=== PATIENT | female | born 1995 | race Caucasian/White ===

== ENCOUNTER 2018-07-26 15:51 | Outpatient (CLI) | payer OTHER ==
[2018-07-26 16:58] LABS: APPEARANCE,URINE SLIGHTLY-CLOUDY; BILIRUBIN,URINE NEGATIVE (NEGATIVE); COLOR,URINE YELLOW; GLUCOSE, URINE NEGATIVE (NEGATIVE); KETONES,URINE NEGATIVE (NEGATIVE); LEUKOCYTE ESTERASE,URINE MODERATE (NEGATIVE); NITRITE,URINE NEGATIVE (NEGATIVE); PROTEIN,URINE NEGATIVE (NEGATIVE); URINE SPECIFIC GRAVITY 1.016
[2018-07-26 17:16] LABS: URINE AMPHETAMINES SCREEN NEGATIVE; URINE BARBITURATES SCREEN NEGATIVE; URINE BENZODIAZEPINES SCREEN NEGATIVE; URINE COCAINE SCREEN NEGATIVE; URINE MARIJUANA (THC) SCREEN NEGATIVE; URINE METHADONE SCREEN NEGATIVE; URINE PHENCYCLIDINE SCREEN NEGATIVE
--- NOTE | 2018-07-26 18:50 | Non Stress Test Report ---
Non Stress Test Datetime Report Generated by CPN: 07/26/2018 18:50 DEMOGRAPHIC EGA NST: 37.2 INDICATION Indication for Study: Ordered by Provider Indication for Study (NST) Other: lc MONITORING Monitor Explained: Monitor Explained; Test Explained; Patient Verbalized Understanding Time on Monitor: 07/26/2018 16:45 Time off Monitor: 07/26/2018 17:29 NST Duration: 44 NST INTERVENTIONS NST Interventions: PO Hydration; Reposition Patient Physician Notified NST: C Jackson CNM BABY A: [id number] BABY A Movement : Present Contraction Frequency : irr FHR Baseline : 140 Accelerations : 15X15 Decelerations : None Variability : Moderate 6-25bpm NST Review: Meets Criteria for Reactive NST NST Review and Verified By : Vicki PFEIFFER RN NST Results: Reactive NST REPORT Report Trigger: Send Report
== END 2018-07-26 17:48 | disposition home or self-care (01) ==
LOC: LC 15:51
PROVIDERS: ATTEND Obstetrics & Gynecology
PROC: 4A1HXCZ Monitoring of Products of Conception, Cardiac Rate, External Approach (ICD-10-PCS; principal; 2018-07-26)
DX: O47.1 False labor at or after 37 completed weeks of gestation (principal); Z3A.37 37 weeks gestation of pregnancy
CPT/HCPCS: 59025; 80307; 81005

== ENCOUNTER 2018-07-29 23:13 | Outpatient (CLI) | payer OTHER ==
[2018-07-29 23:41] LABS: APPEARANCE,URINE CLOUDY; BILIRUBIN,URINE NEGATIVE (NEGATIVE); COLOR,URINE YELLOW; GLUCOSE, URINE NEGATIVE (NEGATIVE); KETONES,URINE NEGATIVE (NEGATIVE); LEUKOCYTE ESTERASE,URINE LARGE (NEGATIVE); NITRITE,URINE NEGATIVE (NEGATIVE); PROTEIN,URINE NEGATIVE (NEGATIVE); URINE SPECIFIC GRAVITY 1.014
[2018-07-30 00:13] LABS: URINE AMPHETAMINES SCREEN NEGATIVE; URINE BARBITURATES SCREEN NEGATIVE; URINE BENZODIAZEPINES SCREEN NEGATIVE; URINE COCAINE SCREEN NEGATIVE; URINE MARIJUANA (THC) SCREEN NEGATIVE; URINE METHADONE SCREEN NEGATIVE; URINE PHENCYCLIDINE SCREEN NEGATIVE
== END 2018-07-30 01:07 | disposition home or self-care (01) ==
LOC: LC 23:13
PROVIDERS: ATTEND Obstetrics & Gynecology
DX: O47.1 False labor at or after 37 completed weeks of gestation (principal); Z3A.37 37 weeks gestation of pregnancy
CPT/HCPCS: 80307; 81005

== ENCOUNTER 2018-08-16 11:42 | Inpatient (IN) | payer OTHER ==
[2018-08-16] MEDS: RINGERS SOLUTION,LACTATED 1,000 ML IV PRN ×3 (12:06→19:07)
[2018-08-16] MEDS ORDERED: OXYTOCIN/NORMAL SALINE 20 UNIT/1,000 ML RTUINJ IV PRN ×2 (12:15→22:24)
[2018-08-16] MEDS ORDERED: RINGERS SOLUTION,LACTATED 300 ML IV ONE (12:15)
[2018-08-16] MEDS ORDERED: MISOPROSTOL 0.2 MG TABLET ONE (12:18)
[2018-08-16] MEDS ORDERED: OXYTOCIN 10 UNIT/ML VIAL ONE (12:18)
[2018-08-16] MEDS ORDERED: OXYTOCIN/NORMAL SALINE 20 UNIT/1,000 ML RTUINJ ONE (12:19)
[2018-08-16] MEDS ORDERED: LIDOCAINE 1% INJ-PF (10 MG/ML) 30 ML SDV ONE (12:19)
[2018-08-16 12:37] LABS: HEMOGLOBIN 11.9 g/dL (12.0-15.5); MEAN CORPUSCULAR HEMOGLOBIN 31.4 pg (27.0-33.4); MEAN CORPUSCULAR HGB CONC 35.2 g/dL (32.0-36.0); MEAN CORPUSCULAR VOLUME 89 fl (80-97); PLATELET COUNT 145 10^3/uL (150-450); RED CELL DISTRIBUTION WIDTH 15.1 % (11.5-14.0); WHITE BLOOD COUNT 8.4 10^3/uL (4.0-10.5)
[2018-08-16 13:04] LABS: ABSOLUTE LYMPHOCYTES# (MANUAL) 1.9 10^3/uL (0.5-4.7); ABSOLUTE MONOCYTES # (MANUAL) 0.3 10^3/uL (0.1-1.4); BAND NEUTROPHILS % (MANUAL) 2 % (3-5); BASOPHILS % (MANUAL) 0 % (0-2); EOSINOPHILS % (MANUAL) 1 % (0-6); LYMPHOCYTES % (MANUAL) 18 % (13-45); MONOCYTES % (MANUAL) 4 % (3-13); SEGMENTED NEUTROPHILS % (MAN) 70 % (42-78); TOTAL CELLS COUNTED 100
[2018-08-16 13:05] LABS: PLATELET COMMENT DECREASED; RBC MORPHOLOGY COMMENT NORMO-CYTIC/CHROMIC; TOXIC GRANULATION 1+
[2018-08-16 13:50] LABS: APPEARANCE,URINE CLOUDY; BILIRUBIN,URINE NEGATIVE (NEGATIVE); COLOR,URINE YELLOW; GLUCOSE, URINE NEGATIVE (NEGATIVE); KETONES,URINE NEGATIVE (NEGATIVE); LEUKOCYTE ESTERASE,URINE LARGE (NEGATIVE); NITRITE,URINE NEGATIVE (NEGATIVE); PROTEIN,URINE NEGATIVE (NEGATIVE); URINE SPECIFIC GRAVITY 1.011; UROBILINOGEN,URINE NEGATIVE mg/dL (<2.0)
--- NOTE | 2018-08-16 13:55 | Admission Physical ---
Datetime Report Generated by CPN: 08/16/2018 13:55 CURRENT ADMISSION Hx Assessment: The History has been Reviewed and is Current Chief Complaint: Scheduled Induction of Labor Indication for Induction: Post Dates Admit Impression : Postterm, Intrauterine ; No Active Labor; Intact Membranes; Induction of Labor Admit Plan: Admit to Unit; Initiate Labor Induction Protocol ALLERGIES Medication Allergies: No Medication Allergies: No Known Allergies (07/30/2018) Latex: No Latex Allergies Food Allergies: pineapple OBSTETRICAL HISTORY EDC: 08/14/2018 00:00 : 2 Para: 1 Term: 1 : 0 SAB: 0 IAB: 0 Ectopic: 0 Livin Cesareans: 0 VBACs: 0 Multiple Births: 0 Gestational Diabetes: No Rh Sensitization: No Incompetent Cervix: No [place]: No Infertility: No ART Treatment: No Uterine Anomaly: No IUGR: No Hx Previous C/S: No Macrosomia: No Hx Loss/Stillborn: No PIH: No Hx : No Placenta Previa/Abruption: No Depression/PP Depression: No PTL/PROM: No Post Hemorrhage: No Current Procedures: Ultrasound Obstetrical History Comments: 2017 9lbs 6 oz female G2 - current SEE RECORDS Alcohol: No Marijuana : No Cocaine: No Other Illicit Drugs: No Cigarettes: Never Smoker. 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 Heart Disease: No Hosp/Surgery: Yes Autoimmune Disorder: No Anesthetic Complications: No Kidney Disease: No Abnormal Pap Smear: No Neuro/Epilepsy: No Psychiatric Disorders: No Other Medical Diseases: No Hepatitis/Liver Disease: No Significant Family History: No Varicosities/Phlebitis: No Trauma/Violence : No Thyroid Dysfunction: No Medical History Comments: Asthma, Left tibia sx x2, INFECTIOUS HISTORY Gonorrhea: No Genital Herpes: No Chlamydia: No Tuberculosis: No Syphilis: No Hepatitis: No HIV/AIDS Exposure: No Rash or Viral Illness: No HPV: No PHYSICAL EXAM General: Normal HEENT: Normal Neurologic: Normal Thyroid: Deferred Heart: Normal Lungs: Normal Breast: Deferred Back: Deferred Abdomen: Normal Genitourinary Exam: Normal Extremities: Normal DTRs: Normal Pelvic Type: Adequate Physical Exam Comments: Pelvis proven 9-6 Asthma GBS neg MEMBRANES Membranes: Intact FETUS A EGA: 40.2 Monitoring: External US Variability: Moderate 6-25bpm Accelerations: 15X15 Decelerations: None FHR Category: Category I Admit Comment: Admitted for IOL, 40,2 Pitocin per protocol VS stable POC discussed PLANS FOR LABOR AND DELIVERY Labor and Delivery: None Pain Management: Epidural Feeding Preference: Breast Circumcision: Yes INFORMED CONSENT Assignment: Carson Rosales MD Signature: with User ID: Chip : with User ID: Chip
[2018-08-16 14:06] LABS: URINE AMPHETAMINES SCREEN NEGATIVE; URINE BARBITURATES SCREEN NEGATIVE; URINE BENZODIAZEPINES SCREEN NEGATIVE; URINE COCAINE SCREEN NEGATIVE; URINE MARIJUANA (THC) SCREEN NEGATIVE; URINE METHADONE SCREEN NEGATIVE; URINE PHENCYCLIDINE SCREEN NEGATIVE
--- NOTE | 2018-08-16 15:19 | Warning Signs in Babies ---
VOD Warning Signs Datetime Report Generated by [facility]: 08/16/2018 15:19 VOD#[id number] -Warning Signs in Babies: Viewed with Parent(s)/Family (08/16/2018 15:18:Paco Larson RN)
[2018-08-16] MEDS ORDERED: PHENYLEPHRINE HCL INJ/PF 10 MG/1 ML SDV ONE (18:34)
[2018-08-16] MEDS ORDERED: FENTANYL CITRATE INJ/PF 100 MCG/2 ML AMPUL ONE (18:34)
[2018-08-16] MEDS ORDERED: EPHEDRINE SULFATE INJ 50 MG/1 ML AMPULE ONE (18:35)
[2018-08-16] MEDS ORDERED: BUPIVACAINE HCL 0.25 % INJ/PF (2.5 MG/1 ML) 30 ML VIAL ONE (18:35)
[2018-08-16] MEDS ORDERED: FENTANYL/BUPIVACAINE/NS/PF 300 MCG/150 ML RTUINJ EPI ONE (18:35)
[2018-08-16] MEDS ORDERED: DIBUCAINE 1% OINTMENT 56 GM TP PRN (22:24)
[2018-08-16] MEDS ORDERED: GLYCERIN/WITCH HAZEL LEAF 1 EACH MED..WIPE TP PRN (22:24)
[2018-08-16] MEDS ORDERED: PROMETHAZINE HCL INJ 25 MG/1 ML VIAL IV PRN (22:24)
[2018-08-16] MEDS ORDERED: PROMETHAZINE HCL 25 MG SUPP.RECT PR PRN (22:24)
[2018-08-16] MEDS ORDERED: MAGNESIUM HYDROXIDE SUSP 30 ML UDCUP PO PRN (22:24)
[2018-08-16] MEDS ORDERED: DIPH/PERTUSS(ACELL)/TETANUS VAC/PF 0.5 ML SYR (>=10YO) IM PRN (22:24)
[2018-08-16] MEDS ORDERED: PROMETHAZINE HCL 25 MG TABLET PO PRN (22:24)
[2018-08-16] MEDS ORDERED: ZOLPIDEM TARTRATE 5 MG TABLET PO PRN (22:24)
[2018-08-16] MEDS ORDERED: MEASLES,MUMPS&RUBELLA VACC/PF 0.5 ML VIAL SUBCUT PRN (22:24)
[2018-08-16] MEDS ORDERED: ACETAMINOPHEN WITH CODEINE #3 TABLET PO PRN ×2 (22:24)
[2018-08-16] MEDS ORDERED: NA PHOS,M-B/NA PHOS,DI-BA (ADULT) 133 ML ENEMA PR PRN (22:24)
[2018-08-16] MEDS ORDERED: PSEUDOEPHEDRINE HCL 30 MG TABLET PO PRN (22:24)
[2018-08-16] MEDS ORDERED: BENZOCAINE/MENTHOL AEROSOL SPRAY 56 ML TOP PRN (22:24)
[2018-08-16] MEDS ORDERED: DIPHENHYDRAMINE HCL 25 MG CAPSULE PO PRN (22:24)
[2018-08-16] MEDS ORDERED: MISOPROSTOL 0.2 MG TABLET PR PRN (22:24)
[2018-08-16] MEDS ORDERED: ACETAMINOPHEN 650 MG SUPP.RECT PR PRN (22:24)
[2018-08-16] MEDS ORDERED: IBUPROFEN 800 MG TABLET ONE (22:38)
[2018-08-16] MEDS ORDERED: ACETAMINOPHEN WITH CODEINE #3 TABLET ONE (22:38)
[2018-08-16] MEDS: FAMOTIDINE 20 MG TABLET PO SCH (23:26)
--- NOTE | 2018-08-16 23:55 | Delivery Summary ---
Del Sum A-C Datetime Report Generated by CPN: 08/16/2018 23:55 DELIVERY PERSONNEL DELIVERY PERSONNEL: [id number] Delivery Doctor:: Carson Rosales MD Labor and Delivery Nurse:: Maribel Owens RNsewing machine operator plastic zipper Nurse:: Netta Saez RN Vacuum Plastic Forming Machine Operator/ACCOUNTING CLERKS SUPERVISOR: Shari Shayne VOCATIONAL NURSE MATERNAL INFORMATION Delivery Anesthesia: Epidural Medications After Delivery: Pitocin Drip 20 Units/1000ml NSS; Cytotec 1000mcg Per Rectum/Vagina Estimated Blood Loss (ml): 250 Maternal Complications: None LABOR SUMMARY EDC: 08/14/2018 00:00 No. Babies in Womb: 1 Attempted: No Labor Anesthesia: Epidural LABOR INFORMATION Reason for Induction: Post Dates Onset of Labor: 08/16/2018 17:42 Complete Dilatation: 08/16/2018 22:02 Oxytocin: Induction Group B Beta Strep: negative Steroids Given: None Reason Steroids Not Administered: Not Applicable MEMBRANES Membranes Rupture Method: Artificial Rupture of Membranes: 08/16/2018 17:42 Length of Rupture (hr): 4.52 Amniotic Fluid Color: Clear Amniotic Fluid Amount: Small Amniotic Fluid Odor: Normal STAGES OF LABOR Stage 1 hr: 4 Stage 1 min: 20 Stage 2 hr: 0 Stage 2 min: 11 Stage 3 hr: 0 Stage 3 min: 7 Total Time in Labor hr: 4 Total Time in Labor min: 38 VAGINAL DELIVERY Episiotomy: None Laceration #1: None Laceration Extension #1: N/A Laceration #2: None Laceration Extension #2: N/A Laceration Repair: Not Applicable Sponge Count Correct: Vaginal Sweep Performed Sharps Count Correct: Yes CSECTION DELIVERY Primary Indication: N/A Secondary Indication: N/A CSection Incidence: N/A Labor: N/A Elective: N/A CSection Incision: N/A BABY A INFORMATION Infant Delivery Date/Time: 08/16/2018 22:13 Method of Delivery: Vaginal Born in Route : No : N/A Forceps: N/A Vacuum Extraction: N/A Shoulder Dystocia : No PRESENTATION/POSITION BABY A Presentation: Cephalic Cephalic Presentation: Vertex Vertex Position: Right Occipital Anterior Breech Presentation: N/A PLACENTA INFORMATION BABY A Placenta Delivery Time : 08/16/2018 22:20 Placenta Method of Delivery: Spontaneous Placenta Status: Delivered SCORES BABY A Heart Rate 1 min: >100 bpm Resp Effort 1 min: Good Cry Reflex Irritability 1 min: Cough or Sneeze or Pulls Away Muscle Tone 1 min: Active Motion Color 1 min: Blue/Pale Resuscitation Effort 1 min: Tactile Stimulation SCORE 1 MIN: 8 Heart Rate 5 min: >100 bpm Resp Effort 5 min: Good Cry Reflex Irritability 5 min: Cough or Sneeze or Pulls Away Muscle Tone 5 min: Active Motion Color 5 min: Body [place], Extremities Blue Resuscitation Effort 5 min: Tactile Stimulation SCORE 5 MIN: 9 INFANT INFORMATION BABY A Gestational Age at Delivery: 40.2 Gestational Status: Full Term- 39- 40.6 Weeks Infant Outcome : Liveborn Infant Condition : Stable Sex: Male IDENTIFICATION BABY A Infant Verification Date/Time: 08/16/2018 23:16 ID Band Number: [id number] Mother's Name Verified: Yes RN Verifying : Morgan Saez RN/ N. Owens RN WEIGHT/LENGTH BABY A Birthweight (gm): 3832 Weight (lb): 8 Infant Weight (oz): 7 Infant Length (in): 20.00 Infant Length (cm): 50.80 CORD INFORMATION BABY A Nuchal Cord : N/A Cord Blood Taken: Yes-For Eval (Mom's Blood Type - or O+) ASSESSMENT BABY A Skin to Skin: Yes Transferred To: Remains with Mother BABY B INFORMATION : N/A SIGNATURES Signature: with User ID: [email or web address]
[2018-08-17] MEDS: IBUPROFEN 800 MG TABLET PO SCH ×3 (05:44→21:20)
[2018-08-17 06:23] LABS: HEMATOCRIT 32.6 % (36.0-47.0); HEMOGLOBIN 11.3 g/dL (12.0-15.5); MEAN CORPUSCULAR HEMOGLOBIN 31.3 pg (27.0-33.4); MEAN CORPUSCULAR HGB CONC 34.7 g/dL (32.0-36.0); MEAN CORPUSCULAR VOLUME 90 fl (80-97); PLATELET COUNT 157 10^3/uL (150-450); RED BLOOD COUNT 3.62 10^6/uL (3.72-5.28); RED CELL DISTRIBUTION WIDTH 15.2 % (11.5-14.0); WHITE BLOOD COUNT 11.2 10^3/uL (4.0-10.5)
[2018-08-17] MEDS: FERROUS SULFATE 325 MG TABLET PO SCH ×2 (09:37→17:09)
[2018-08-17] MEDS: DOCUSATE SODIUM 100 MG CAPSULE PO SCH ×2 (09:37→17:09)
[2018-08-17] MEDS: PRENATAL VITAMIN W DHA CAPSULE PO SCH (09:37)
[2018-08-17] MEDS: SENNOSIDES/DOCUSATE 8.6-50 MG 1 EACH TABLET PO SCH (09:37)
[2018-08-17] MEDS: FAMOTIDINE 20 MG TABLET PO SCH ×2 (09:37→21:20)
--- NOTE | 2018-08-17 11:01 | PDOC PROGRESS REPORT ---
Subjective-OB Progress Note for:: 08/17/18 Subjective: reports bleeding slowing, pain controlled with current meds. denies needs Physical Exam (OB) Vital Signs: Temp Pulse Resp BP Pulse Ox 97.8 F 83 15 130/58 H 95 08/17/18 08:34 08/17/18 08:34 08/17/18 08:34 08/17/18 08:34 08/17/18 08:34 Intake & Output 08/16/18 08/17/18 08/18/18 06:59 06:59 06:59 Intake Total 877 Balance 877 Weight 103.4 kg - Abdomen Description: Soft, Round Hernia Present: No Fundal Description: Firm, Midline Fundal Height: u/u - u/2 - Abdominal Distension: No distension Tenderness: Nontender - Extremities Lower extremities: Cait's sign - neg Calf: Normal, Nontender Objective-Diagnostic Laboratory: 08/17/18 06:09 08/16/18 08/16/18 08/16/18 11:49 12:18 12:18 WBC 8.4 RBC 3.80 Hgb 11.9 L Hct 34.0 L MCV 89 MCH 31.4 MCHC 35.2 RDW 15.1 H Plt Count 145 L Seg Neutrophils % Not Reportable Lymphocytes % Not Reportable Monocytes % Not Reportable Eosinophils % Not Reportable Basophils % Not Reportable Absolute Neutrophils Not Reportable Absolute Lymphocytes Not Reportable Absolute Monocytes Not Reportable Absolute Eosinophils Not Reportable Absolute Basophils Not Reportable Urine Color YELLOW Urine Appearance CLOUDY Urine pH 8.0 Ur Specific [place] 1.011 Urine Protein NEGATIVE Urine Glucose (UA) NEGATIVE Urine Ketones NEGATIVE Urine Blood NEGATIVE Urine Nitrite NEGATIVE Ur Leukocyte Esterase LARGE H Blood Type O POSITIVE Antibody Screen NEGATIVE 08/17/18 06:09 WBC 11.2 H RBC 3.62 L Hgb 11.3 L Hct 32.6 L MCV 90 MCH 31.3 MCHC 34.7 RDW 15.2 H Plt Count 157 Seg Neutrophils % Lymphocytes % Monocytes % Eosinophils % Basophils % Absolute Neutrophils Absolute Lymphocytes Absolute Monocytes Absolute Eosinophils Absolute Basophils Urine Color Urine Appearance Urine pH Ur Specific [place] Urine Protein Urine Glucose (UA) Urine Ketones Urine Blood Urine Nitrite Ur Leukocyte Esterase Blood Type Antibody Screen Assessment and Plan(PN) - Assessment and Plan (1) Encounter for planned induction of labor Is this a current diagnosis for this admission?: Yes (2) Post term Is this a current diagnosis for this admission?: Yes (3) Vaginal delivery Is this a current diagnosis for this admission?: Yes - Time Spent with Patient Time with patient: Less than 15 minutes - Disposition Anticipated Discharge: Home Within: within 24 hours
[2018-08-18] MEDS: IBUPROFEN 800 MG TABLET PO SCH ×2 (06:24→13:49)
[2018-08-18 08:25] VITALS: BP 138/68
[2018-08-18] MEDS: SENNOSIDES/DOCUSATE 8.6-50 MG 1 EACH TABLET PO SCH (09:03)
[2018-08-18] MEDS: FAMOTIDINE 20 MG TABLET PO SCH (09:03)
[2018-08-18] MEDS: DOCUSATE SODIUM 100 MG CAPSULE PO SCH (09:03)
[2018-08-18] MEDS: PRENATAL VITAMIN W DHA CAPSULE PO SCH (09:03)
[2018-08-18] MEDS: FERROUS SULFATE 325 MG TABLET PO SCH (09:03)
--- NOTE | 2018-08-18 10:30 | PDOC PROGRESS REPORT ---
Subjective-OB Progress Note for:: 08/18/18 Subjective: Doing well, no c/o, ready to go home, wants circumcision, Physical Exam (OB) Vital Signs: Temp Pulse Resp BP Pulse Ox 97.8 F 78 19 138/68 H 98 08/18/18 08:24 08/18/18 08:24 08/18/18 08:24 08/18/18 08:24 08/18/18 08:24 Intake & Output 08/17/18 08/18/18 08/19/18 06:59 06:59 06:59 Intake Total 877 600 Balance 877 600 Weight 103.4 kg - PIH/Pre-Eclampsia DTR's: 1 + Clonus: Negative Headache: Absent Epigastric Pain: No Visual Changes: No - Lochia Lochia Amount: Scant < 10 ml Lochia Color: Rubra/Red - Abdomen Description: Soft, Round Hernia Present: No Fundal Description: Firm, Midline Fundal Height: u/u - u/2 Objective-Diagnostic Laboratory: 08/17/18 06:09 Assessment and Plan(PN) - Assessment and Plan (1) Encounter for planned induction of labor Is this a current diagnosis for this admission?: Yes (2) Vaginal delivery Is this a current diagnosis for this admission?: Yes (3) Post term Is this a current diagnosis for this admission?: Yes - Time Spent with Patient Time with patient: Less than 15 minutes Medications reviewed and adjusted accordingly: Yes - Disposition Anticipated Discharge: Home Within: within 24 hours
--- NOTE | 2018-08-18 10:31 | PDOC DISCHARGE SUMMARY ---
Final Diagnosis Discharge Date: 08/18/18 - Final Diagnosis (1) Encounter for planned induction of labor Is this a current diagnosis for this admission?: Yes (2) Vaginal delivery Is this a current diagnosis for this admission?: Yes (3) Post term Is this a current diagnosis for this admission?: Yes Discharge Data - Discharge Medication Home Medications: Vits96/Iron Fum/Folic [ Tablet] 1 each PO DAILY 07/30/18 Cetirizine HCl [Zyrtec 10 mg Tablet] 10 mg PO DAILY 08/16/18 Gestational Age: 40.2 Reason(s) for Admission: Induction of Labor Procedures: NST, Ultrasound Intrapartum Procedure(s): Spontaneous Vaginal Delivery - [place] Data Baby 1 Male at 1 minute: 8 at 5 minutes: 9 Weight: 3.827 kg Home with Mother: Yes Complications: No - Diagnosis Test Laboratory: Temp Pulse Resp BP Pulse Ox 97.8 F 78 19 138/68 H 98 08/18/18 08:24 08/18/18 08:24 08/18/18 08:24 08/18/18 08:24 08/18/18 08:24 08/16/18 08/16/18 08/17/18 11:49 12:18 06:09 RBC 3.80 3.62 L Hgb 11.9 L 11.3 L Hct 34.0 L 32.6 L Urine Opiates Screen NEGATIVE - Discharge information/Instructions Discharge Activity: Activity As Tolerated, No Lifting Over 10 Pounds, Pelvic Rest Discharge Diet: As Tolerated, Regular Disposition: HOME, SELF-CARE Follow up with: [facility] in: 4, Weeks
== END 2018-08-18 17:00 | disposition home or self-care (01) | DRG 807 ==
LOC: LR 11:42 → 2S 08-17 00:31
PROVIDERS: ADMIT Obstetrics & Gynecology; ATTEND Obstetrics & Gynecology
PROC: 10E0XZZ Delivery of Products of Conception, External Approach (ICD-10-PCS; principal; 2018-08-16)
PROC: 4A1HX4Z Monitoring of Products of Conception, Cardiac Electrical Activity, External Approach (ICD-10-PCS; 2018-08-16)
PROC: 10907ZC Drainage of Amniotic Fluid, Therapeutic from Products of Conception, Via Natural or Artificial Opening (ICD-10-PCS; 2018-08-16)
DX: O48.0 Post-term pregnancy (principal); Z37.0 Single live birth; Z3A.40 40 weeks gestation of pregnancy
CPT/HCPCS: 36415; 80307; 81005; 85025; 85027; 86592; 86850; 86900; 86901; 94760; J2370; J2590; J3010; J3490